=== PATIENT | male | born 1995 | race Caucasian/White ===

== ENCOUNTER 2024-02-02 09:24 | Emergency (ER) | payer SELFPAY ==
[~2024-02-02] VITALS: Ht 193 cm; Wt 147.0 kg
[2024-02-02] MEDS ORDERED: KETOROLAC TROMETHAMINE INJ 60 MG/2 ML VIAL IM ONE (10:05)
[2024-02-02] MEDS: KETOROLAC TROMETHAMINE INJ 60 MG/2 ML VIAL IM ONE (10:11)
[2024-02-02] MEDS: METHOCARBAMOL (750MG) 750 MG TABLET PO SCH (10:12)
[2024-02-02] MEDS ORDERED: METH-647 PO (11:27)
[2024-02-02] MEDS ORDERED: IBUP-1957 PO (11:27)
[2024-02-02 11:44] VITALS: BP 134/81; TEMP 98.2; O2SAT 96
== END 2024-02-02 11:53 | disposition home or self-care (01) ==
LOC: ER 10:07
DX: M51.36 Other intervertebral disc degeneration, lumbar region (principal); M54.50 Low back pain, unspecified; E66.01 Morbid (severe) obesity due to excess calories; E11.9 Type 2 diabetes mellitus without complications; Z68.39 Body mass index [BMI] 39.0-39.9, adult
CPT/HCPCS: 99285; 72131; 96372; J1885